=== PATIENT | female | born 1980 | race Caucasian/White ===

== ENCOUNTER 2019-03-21 16:35 | Emergency (ER) | payer MEDICAID ==
[~2019-03-21] VITALS: Ht 167.6 cm; Wt 90.0 kg
[2019-03-21 16:51] VITALS: BP 154/92; TEMP 98.7
[2019-03-21] MEDS ORDERED: SEROQUEL 200MG200 MG PO (17:32)
[2019-03-21] MEDS ORDERED: FLEXERIL 1010 MG/TAB PO (17:32)
[2019-03-21] MEDS ORDERED: TRILEPTAL600 MG PO (17:32)
[2019-03-21] MEDS ORDERED: VERAPAMIL 440 MG/TAB PO (17:32)
[2019-03-21] MEDS ORDERED: TROKEND100 PO (17:33)
[2019-03-21] MEDS ORDERED: TOPAMAX 25MG25 M1 PO (17:33)
[2019-03-21] MEDS ORDERED: EFFEXOR 75M75 MG/TAB PO (17:33)
[2019-03-21] MEDS ORDERED: PROAIR HFA0.09 MG/AC IH (17:34)
[2019-03-21] MEDS ORDERED: PRINIVIL20 MG PO (17:34)
[2019-03-21 18:46] LABS: BASO % 0.4 % (0.0-2.0); EOS # 0.1 (0.0-0.7); EOS % 1.3 % (0-4.0); GRAN # 2.1 (1.4-6.5); HEMOGLOBIN 10.6 g/dl (12.5-16.0); LYMPH # 4.1 (1.2-3.4); LYMPH % 58.8 % (20.0-51.0); MEAN CELL VOLUME 94 fl (80.0-100.0); MEAN CORPUSCULAR HEMOGLOBIN 31 pg (27.0-31.0); MEAN CORPUSCULAR HGB CONC 33 g/dl (33.0-37.0); MONO # 0.6 (0.1-0.6); MONO % 8.4 % (1.7-9.3); PLATELET COUNT 344 K/mm3 (130-400); RED BLOOD COUNT 3.46 M/mm3 (4.10-5.30); REDCELL DISTRIBUTION WIDTH-CV 13.6 % (11.5-14.5)
[2019-03-21 18:53] LABS: HEMATOCRIT 32.6 % (37.0-47.0)
[2019-03-21 18:55] LABS: ALANINE AMINOTRANSFERASE 10 U/L (9-52); ALBUMIN 4.3 gm/dL (3.5-5.0); ALKALINE PHOSPHATASE 89 U/L (50-136); ANION GAP 9 mmol/L (7-16); AST,SGOT 23 U/L (15-37); BILIRUBIN,TOTAL 0.1 mg/dL (0.0-1.0); BLOOD UREA NITROGEN 10 mg/dL (7-17); CALCIUM 9.7 mg/dL (8.4-10.2); CARBON DIOXIDE 25 mmol/L (22-30); CHLORIDE 110 mmol/L (98-107); CREATININE, serum 0.86 (0.52-1.25); GLUCOSE 93 mg/dL (74-106); POTASSIUM 3.9 mmol/L (3.4-5.0); SODIUM 144 mmol/L (137-145); TOTAL PROTEIN 7.7 gm/dL (6.4-8.2)
[2019-03-21 19:13] LABS: TROPONIN-I < 0.012 ng/mL (0.000-0.035)
[2019-03-21] MEDS ORDERED: NORCO 325 MG-51 TAB PO (19:58)
[2019-03-21 20:12] VITALS: PULSE 69
== END 2019-03-21 20:14 | disposition home or self-care (01) ==
LOC: COL.ER 16:35
PROVIDERS: Nurse Practitioner
DX: M54.12 Radiculopathy, cervical region (principal); I10 Essential (primary) hypertension; F31.9 Bipolar disorder, unspecified; J45.909 Unspecified asthma, uncomplicated; Z90.710 Acquired absence of both cervix and uterus
CPT/HCPCS: J1885

== ENCOUNTER → 2019-05-03 | Outpatient (CLI) | payer MEDICAID ==
[~2019-05-03] MED LIST: EFFEXOR 75M75 MG/TAB PO; FLEXERIL 1010 MG/TAB PO; NORCO 325 MG-51 TAB PO; PRINIVIL20 MG PO; PROAIR HFA0.09 MG/AC IH; SEROQUEL 200MG200 MG PO; TOPAMAX 25MG25 M1 PO; TRILEPTAL600 MG PO; TROKEND100 PO; VERAPAMIL 440 MG/TAB PO
== END ==
LOC: COL.RAD 04-27 14:00
DX: M50.11 Cervical disc disorder with radiculopathy, high cervical region (principal); M48.02 Spinal stenosis, cervical region; G93.5 Compression of brain

== ENCOUNTER 2019-06-01 13:09 | Emergency (ER) | payer MEDICAID ==
[~2019-06-01] VITALS: Ht 167.6 cm; Wt 95.0 kg
[2019-06-01 13:14] VITALS: BP 141/95; PULSE 89; TEMP 98
[2019-06-01] MEDS ORDERED: NORCO 325 MG-51 TAB PO (13:38)
== END 2019-06-01 14:02 | disposition home or self-care (01) ==
LOC: COL.ER 13:09
DX: T21.21XA Burn of second degree of chest wall, initial encounter (principal); X10.0XXA Contact with hot drinks, initial encounter

== ENCOUNTER → 2019-06-02 | Outpatient (CLI) | payer MEDICAID | LOC: MHCPAIN 10:07 | DX: M47.812 Spondylosis without myelopathy or radiculopathy, cervical region (principal); G89.29 Other chronic pain | CPT/HCPCS: G0463 ==